=== PATIENT | male | born 1950 | race Caucasian/White ===

== ENCOUNTER 2021-05-12 12:36 | Observation (INO) | payer OTHER ==
[2021-05-12] MEDS ORDERED: Sodium Chloride 0.9% 1,000 ML IV ONE (13:44)
[2021-05-12] MEDS ORDERED: Sodium Chloride 0.9% 10 ML Syringe FLUSH PRN (13:44)
[2021-05-12] MEDS ORDERED: Sodium Chloride 0.9% 2.5 ML Syringe FLUSH PRN (13:44)
[2021-05-12] MEDS ORDERED: Piperacillin/Tazobactam 3.375 GM in Sodium Chloride 0.9% 50 ML IV ONE (14:48)
[2021-05-12 15:14] LABS: BLOOD UREA NITROGEN,BUN 5 mg/dL (7.0-18.0); CARBON DIOXIDE,CO2 30.1 mmol/L (21.0-32.0); CHLORIDE,CL 89 mmol/L (98-107); GLUCOSE RANDOM 128 mg/dL (74-106); LIPASE 33 U/L (73-393); POTASSIUM,K 2.6 mmol/L (3.5-5.1); SODIUM,NA 131 mmol/L (136-148)
[2021-05-12] MEDS ORDERED: Potassium Chloride 20 MEQ Tab.ER PO ONE (15:29)
[2021-05-12] MEDS ORDERED: Potassium Chloride Riders 40 MEQ in Premix Bag 1 BAG IV ONE (15:29)
[2021-05-12] MEDS ORDERED: VANCOmycin 1.5 GM/300 ML 1.5 GM in Premix Bag 1 BAG IV ONE (15:30)
[2021-05-12] MEDS ORDERED: Acetaminophen 650 MG Supp RECTAL ONE (15:49)
[2021-05-12] MEDS ORDERED: Acetaminophen 1,000 MG in Premix Bag 1 BAG IV ONE (15:53)
[2021-05-12] MEDS ORDERED: Iopamidol 755 MG/ML 500 ML Multipack Bottle IVPUSH ONE (18:25)
[2021-05-12] MEDS ORDERED: Dexmedetomidine 200 MCG/2 ML SDV ONE (18:31)
[2021-05-12] MEDS ORDERED: Dexamethasone 4 MG/ML 5 ML MDV ONE (18:31)
[2021-05-12] MEDS ORDERED: Water For Injection, Sterile 20 ML ONE (18:32)
[2021-05-12] MEDS ORDERED: fentaNYL 100 MCG/2 ML SDV ONE ×2 (18:32→19:24)
[2021-05-12] MEDS ORDERED: Propofol 200 MG/20 ML SDV ONE (18:32)
[2021-05-12] MEDS ORDERED: Bupivacaine 25%/EPINEPHrine/PF 30 ML ONE (18:40)
[2021-05-12] MEDS ORDERED: Ondansetron 4 MG/2 ML SDV ONE (19:29)
[2021-05-12] MEDS ORDERED: Naloxone 0.4 MG/ML SDV IVPUSH PRN (19:33)
[2021-05-12] MEDS ORDERED: fentaNYL 100 MCG/2 ML SDV IVPUSH PRN (19:33)
[2021-05-12] MEDS ORDERED: Morphine 4 MG/ML VIAL IVPUSH PRN (19:33)
[2021-05-12] MEDS ORDERED: HYDROmorphone 1 MG/ML Syringe IVPUSH PRN (19:33)
[2021-05-12] MEDS ORDERED: Albuterol 0.083% 2.5 MG/3 ML Neb Soln NEB PRN (19:33)
[2021-05-12] MEDS ORDERED: Ondansetron 4 MG/2 ML SDV IVPUSH PRN ×2 (19:33→20:29)
[2021-05-12] MEDS: Clindamycin Phosphate in D5W 50 ML IV SCH (21:39)
[2021-05-12] MEDS: Acetaminophen/oxyCODONE 325-5 MG Tab PO PRN (21:43)
[2021-05-12] MEDS: Lactated Ringers 1,000 ML IV SCH (22:54)
[2021-05-13] MEDS: Clindamycin Phosphate in D5W 50 ML IV SCH ×3 (04:18→20:14)
[2021-05-13] MEDS: Acetaminophen/oxyCODONE 325-5 MG Tab PO PRN ×2 (08:29→18:12)
[2021-05-13] MEDS: Pantoprazole 40 MG in Sodium Chloride 0.9% 10 ML IVPUSH SCH (09:50)
[2021-05-13] MEDS: Lactated Ringers 1,000 ML IV SCH (15:22)
[2021-05-13] MEDS: Rosuvastatin 10 MG Tab PO SCH (20:15)
[2021-05-14] MEDS: Acetaminophen/oxyCODONE 325-5 MG Tab PO PRN ×3 (03:19→23:13)
[2021-05-14] MEDS: Clindamycin Phosphate in D5W 50 ML IV SCH ×3 (04:13→20:08)
[2021-05-14 04:52] LABS: BLOOD UREA NITROGEN,BUN 5 mg/dL (7.0-18.0); CARBON DIOXIDE,CO2 29.6 mmol/L (21.0-32.0); CHLORIDE,CL 100 mmol/L (98-107); GLUCOSE RANDOM 99 mg/dL (74-106); POTASSIUM,K 3.3 mmol/L (3.5-5.1); SODIUM,NA 138 mmol/L (136-148)
[2021-05-14] MEDS: Metoprolol Tartrate 25 MG Tab PO SCH ×2 (08:41→20:07)
[2021-05-14] MEDS: Lisinopril 5 MG Tab PO SCH (08:42)
[2021-05-14] MEDS: Pantoprazole 40 MG in Sodium Chloride 0.9% 10 ML IVPUSH SCH (08:42)
[2021-05-14] MEDS: Lactated Ringers 1,000 ML IV SCH (09:56)
[2021-05-14] MEDS ORDERED: Morphine 2 MG/ML SYRINGE IVPUSH ONE (10:14)
[2021-05-14] MEDS ORDERED: Lidocaine 1% with EPINEPHrine 1:100,000 10 ML MDV INJECT ONE (10:22)
[2021-05-14] MEDS: Rosuvastatin 10 MG Tab PO SCH (20:07)
[2021-05-15] MEDS: Clindamycin Phosphate in D5W 50 ML IV SCH (04:21)
[2021-05-15] MEDS: Pantoprazole 40 MG in Sodium Chloride 0.9% 10 ML IVPUSH SCH (08:56)
[2021-05-15] MEDS: Metoprolol Tartrate 25 MG Tab PO SCH (08:56)
[2021-05-15] MEDS: Lisinopril 5 MG Tab PO SCH (08:57)
== END 2021-05-15 14:10 | disposition home health service (06) ==
LOC: MW.ED 12:36 → MW.MS 17:53
PROVIDERS: ADMIT Surgery; ATTEND Surgery
DX: K61.1 Rectal abscess (principal); R00.0 Tachycardia, unspecified; F17.210 Nicotine dependence, cigarettes, uncomplicated; Z79.899 Other long term (current) drug therapy; Z01.812 Encounter for preprocedural laboratory examination; Z20.822 Contact with and (suspected) exposure to COVID-19
CPT/HCPCS: 36415; 46040; 74177; 80053; 80202; 81001; 83605; 83690; 83735; 84100; 84484; 85025; 87040; 87070; 87205; 87635; 93005; 96365; 96366; 96367; 96368; 96375; 99285; A9270; C9113; J0131; J1100; J2270; J2370; J2543; J2704; J3370; J3480; J3490; J7030; J7050; J7120; Q9967; 00902; 93010; 99291; J2405; J3010; U0002

== ENCOUNTER 2023-02-27 06:28 | Day surgery (SDC) | payer OTHER ==
[~2023-02-27 06:28] MED LIST: Lactated Ringers 1,000 ML IV SCH; Sodium Chloride 0.9% 10 ML Syringe FLUSH PRN; Sodium Chloride 0.9% 2.5 ML Syringe FLUSH PRN; Sodium Chloride 0.9% 20 ML SDV IV PRN; ceFAZolin 2 GM in Sodium Chloride 0.9% 50 ML IV ONE
[2023-02-27] MEDS ORDERED: HYDROmorphone 1 MG/ML Syringe IVPUSH PRN (06:42)
[2023-02-27] MEDS ORDERED: fentaNYL 50 MCG/ML SDV IVPUSH PRN (06:42)
[2023-02-27] MEDS ORDERED: Ondansetron 4 MG/2 ML SDV IVPUSH PRN (06:42)
[2023-02-27] MEDS ORDERED: Morphine 2 MG/ML SYRINGE IVPUSH PRN (06:42)
[2023-02-27] MEDS ORDERED: Naloxone 0.4 MG/ML SDV IVPUSH PRN (06:42)
[2023-02-27] MEDS ORDERED: droPERidol 5 MG/2 ML SDV IVPUSH PRN (06:42)
[2023-02-27] MEDS ORDERED: Albuterol 0.083% 2.5 MG/3 ML Neb Soln NEB PRN (06:42)
[2023-02-27] MEDS ORDERED: Metoclopramide 10 MG/2 ML SDV IVPUSH PRN (06:42)
[2023-02-27] MEDS ORDERED: Bupivacaine 0.5% 30 ML SDV ONE (07:27)
[2023-02-27] MEDS ORDERED: EPINEPHrine 1 MG/1 ML Amp ONE (07:32)
[2023-02-27] MEDS ORDERED: Ropivacaine 0.5% 5 MG/ML 30 ML SDV ONE (07:32)
[2023-02-27] MEDS ORDERED: Propofol 200 MG/20 ML SDV ONE (07:33)
[2023-02-27] MEDS ORDERED: Dexamethasone 4 MG/ML 5 ML MDV ONE (07:33)
[2023-02-27] MEDS ORDERED: Ketorolac 30 MG/ML SDV ONE (07:33)
[2023-02-27] MEDS ORDERED: Lidocaine 2% 5 ML SDV ONE (07:33)
[2023-02-27] MEDS ORDERED: Ondansetron 4 MG/2 ML SDV ONE (07:33)
[2023-02-27] MEDS ORDERED: fentaNYL 100 MCG/2 ML SDV ONE (07:34)
[2023-02-27] MEDS ORDERED: ceFAZolin 2 GM Vial ONE (08:16)
[2023-02-27] MEDS ORDERED: Phenylephrine HCl 0.5 MG/5 ML AMP ONE (08:30)
== END 2023-02-27 10:26 | disposition home or self-care (01) ==
LOC: MW.SDS 06:28
PROVIDERS: ATTEND Surgery
DX: K42.0 Umbilical hernia with obstruction, without gangrene (principal); I25.10 Atherosclerotic heart disease of native coronary artery without angina pectoris; I10 Essential (primary) hypertension; J44.9 Chronic obstructive pulmonary disease, unspecified; E78.00 Pure hypercholesterolemia, unspecified; I25.2 Old myocardial infarction; F17.210 Nicotine dependence, cigarettes, uncomplicated; Z88.8 Allergy status to other drugs, medicaments and biological substances; Z79.82 Long term (current) use of aspirin; Z79.899 Other long term (current) drug therapy; Z90.49 Acquired absence of other specified parts of digestive tract; Z95.5 Presence of coronary angioplasty implant and graft
CPT/HCPCS: 49592; 88302; J0171; J0690; J2371; J2405; J2704; J2795; J3010; J3490; J7120; 00790; 64488; 99100; J0665; J1100; J1885; J7620-GY

== ENCOUNTER 2023-08-30 17:08 | Emergency (ER) | payer OTHER ==
[2023-08-30] MEDS: Lidocaine 1% 5 ML VIAL INJECT ONE (18:32)
[2023-08-30] MEDS: Acetaminophen 500 MG Tab PO ONE (18:57)
[2023-08-30] MEDS: Sodium Chloride 0.9% 1,000 ML IV ONE (18:59)
[2023-08-30 19:16] LABS: BASOPHILS ABSOLUTE AUTO 0.02 K/uL (0.00-0.20); BASOPHILS PERCENT AUTO 0.2 % (0.0-1.0); EOSINOPHILS ABSOLUTE AUTO 0.01 K/uL (0.00-0.45); EOSINOPHILS PERCENT AUTO 0.1 % (0.0-6.0); HEMATOCRIT 45.8 % (42.0-52.0); HEMOGLOBIN 16.1 g/dL (14.0-18.0); IMMATURE GRAN ABSOLUTE AUTO 0.06 K/uL (0.00-0.05); IMMATURE GRAN PERCENT AUTO 0.7 % (0.0-0.4); LYMPHOCYTES ABSOLUTE AUTO 0.28 K/uL (1.00-4.80); LYMPHOCYTES PERCENT AUTO 3.3 % (24.0-44.0); MEAN CORPUSCULAR HEMOGLOBIN 33.6 pg (28.0-32.0); MEAN CORPUSCULAR HGB CONC 35.2 g/dL (32.0-36.0); MEAN CORPUSCULAR VOLUME 95.6 fL (83.0-99.0); MEAN PLATELET VOLUME 10.7 fL (9.4-12.4); MONOCYTES ABSOLUTE AUTO 0.09 K/uL (0.00-0.80); MONOCYTES PERCENT AUTO 1.1 % (0.0-8.0); NEUTROPHILS ABSOLUTE AUTO 8.07 K/uL (1.80-7.70); NEUTROPHILS PERCENT AUTO 94.6 % (41.0-71.0); PLATELET COUNT,PLT 130 K/uL (150-400); RED BLOOD CELL COUNT 4.79 M/uL (4.52-5.90); WHITE BLOOD CELL COUNT,WBC 8.53 K/uL (3.9-11.3)
[2023-08-30 19:38] LABS: CALCIUM 8.3 mg/dL (8.5-10.1); CARBON DIOXIDE,CO2 25.9 mmol/L (21.0-32.0); EST CRCL DRUG DOSING (CG) 61.91 mL/min; POTASSIUM,K 3.4 mmol/L (3.5-5.1)
[2023-08-30] MEDS: Sodium Chloride 0.9% 1,000 ML IV STA (20:32)
[2023-08-30 21:11] LABS: TSH ULTRASENSITIVE 1.95 uIU/mL (0.36-3.74)
[2023-08-30] MEDS: Amoxicillin/Clavulanate K 875-125 MG Tab PO ONE (23:21)
== END 2023-08-30 23:22 | disposition left against medical advice (07) ==
LOC: MW.ED 17:08
DX: K12.2 Cellulitis and abscess of mouth (principal); R00.0 Tachycardia, unspecified; I10 Essential (primary) hypertension; I25.2 Old myocardial infarction; Z75.8 Other problems related to medical facilities and other health care; Z95.5 Presence of coronary angioplasty implant and graft
CPT/HCPCS: 36415; 80048; 84443; 85025; 93005; 96360; 96361; 99283; A9270; J7030; 10060; 93010; J3490